=== PATIENT | female | born 1960 ===

== ENCOUNTER 2019-04-17 19:10 | Emergency (ER) | payer OTHER ==
[2019-04-17 19:32] VITALS: BP 131/84; PULSE 69; TEMP 98.4; O2SAT 98
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
[2019-04-17 20:48] VITALS: RESP 20
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
== END 2019-04-17 20:47 | disposition home or self-care (01) ==
LOC: C.ER 19:10
DX: M54.5 Low back pain (principal); M62.830 Muscle spasm of back; V49.49XA Driver injured in collision with other motor vehicles in traffic accident, initial encounter; Y92.410 Unspecified street and highway as the place of occurrence of the external cause